=== PATIENT | female | born 1980 | race American Indian/Alaskan Native ===

== ENCOUNTER 2017-11-07 00:03 | Emergency (ER) | payer OTHER ==
[2017-11-07 01:38] LABS: CHLORIDE,CL 103 mmol/L (101-111); SODIUM,NA 135 mmol/L (135-145)
[2017-11-07] MEDS: Azithromycin 250 MG Tab PO ONE (02:08)
[2017-11-07] MEDS: cefTRIAXone 250 MG, Lidocaine 1% 0.9 ML IM ONE ×2 (02:10)
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
== END 2017-11-07 03:00 | disposition home or self-care (01) ==
LOC: EDBD → DL.ED 00:03 → EDUNIT# 00:03 → DL.ED 03:00
DX: T76.21XA Adult sexual abuse, suspected, initial encounter (principal); F19.10 Other psychoactive substance abuse, uncomplicated; F17.210 Nicotine dependence, cigarettes, uncomplicated
CPT/HCPCS: 36415; 80053; 80305; 81001; 84703; 96372; 99284; 99285; A9270; G0480; J0696

== ENCOUNTER 2017-11-09 17:23 | Emergency (ER) | payer MEDICAID, OTHER ==
[2017-11-09 18:00] LABS: CHLORIDE,CL 104 mmol/L (101-111); SODIUM,NA 136 mmol/L (135-145)
[2017-11-09 18:01] LABS: ACETAMINOPHEN < 10
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
== END 2017-11-09 19:02 ==
LOC: DL.ED 17:23
DX: F15.129 Other stimulant abuse with intoxication, unspecified (principal); F19.10 Other psychoactive substance abuse, uncomplicated; F10.129 Alcohol abuse with intoxication, unspecified; R41.82 Altered mental status, unspecified; Y90.0 Blood alcohol level of less than 20 mg/100 ml
CPT/HCPCS: 36415; 80053; 80305; 81001; 81025; 83735; 84443; 85025; 99285; G0480

== ENCOUNTER 2019-09-30 13:49 | Emergency (ER) | payer MEDICAID, OTHER ==
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
== END 2019-09-30 14:53 | disposition home or self-care (01) ==
LOC: DL.ED 13:49
DX: S66.911A Strain of unspecified muscle, fascia and tendon at wrist and hand level, right hand, initial encounter (principal); F17.210 Nicotine dependence, cigarettes, uncomplicated; W22.8XXA Striking against or struck by other objects, initial encounter; Y93.71 Activity, boxing
CPT/HCPCS: 29125; 73110-RT; 73130-RT; 99282-25

== ENCOUNTER 2021-01-09 06:40 | Emergency (ER) | payer MEDICAID ==
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
[2021-01-09] MEDS ORDERED: Acetaminophen 325 MG Tab PO ONE (07:18)
[2021-01-09] MEDS ORDERED: Ibuprofen 800 MG Tab PO ONE (07:19)
--- NOTE | 2021-01-09 07:46 | CR ---
PROCEDURE INFORMATION: Exam: XR Left Hand Exam date and time: 01/09/2021 7:22 AM Age: 40 years old Clinical indication: Pain; Hand; Left; Additional info: Left hand injury w/pain swelling TECHNIQUE: Imaging protocol: XR Left hand. Views: 3 or more views. COMPARISON: No relevant prior studies available. FINDINGS: Bones/joints: Comminuted fracture involving the 5th metacarpal neck with palmar angulation of the 5th metacarpal head. No additional fractures. No dislocation Soft tissues: There is soft tissue swelling appreciated. IMPRESSION: Comminuted fracture involving the 5th metacarpal neck with palmar angulation of the 5th metacarpal head.
--- NOTE | 2021-01-09 08:21 | CR ---
PROCEDURE INFORMATION: Exam: XR Left Forearm Exam date and time: 01/09/2021 8:07 AM Age: 40 years old Clinical indication: Pain; Lower or forearm; Left; Additional info: Fall, forearm pain TECHNIQUE: Imaging protocol: XR Left forearm. Views: 2 views. COMPARISON: No relevant prior studies available. FINDINGS: Bones/joints: Boxer's fracture at the 5th metacarpal bone. No additional fractures. No dislocation. Soft tissues: There is soft tissue swelling appreciated. IMPRESSION: Boxer's fracture at the 5th metacarpal bone.
== END 2021-01-09 08:42 | disposition home or self-care (01) ==
LOC: DL.ED 06:40
DX: S62.337A Displaced fracture of neck of fifth metacarpal bone, left hand, initial encounter for closed fracture (principal); W01.0XXA Fall on same level from slipping, tripping and stumbling without subsequent striking against object, initial encounter
CPT/HCPCS: 29125; 73090; 73130; 99283; 99284; A9270

== ENCOUNTER 2021-03-23 05:26 | Emergency (ER) | payer OTHER, MEDICAID ==
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
[2021-03-23] MEDS ORDERED: Iopamidol 612 MG/ML 100 ML Bottle IVPUSH ONE (06:00)
[2021-03-23] MEDS ORDERED: HYDROmorphone 1 MG/ML Syringe IVPUSH ONE ×2 (06:12→07:52)
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
[2021-03-23 06:45] LABS: CHLORIDE,CL 106 mmol/L (98-107); SODIUM,NA 143 mmol/L (136-145)
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
== END 2021-03-23 09:40 ==
LOC: DL.ED 05:26
DX: S82.251A Displaced comminuted fracture of shaft of right tibia, initial encounter for closed fracture (principal); V09.9XXA Pedestrian injured in unspecified transport accident, initial encounter; Y92.410 Unspecified street and highway as the place of occurrence of the external cause
CPT/HCPCS: 36415; 70450; 71260; 72125; 72128; 72131; 73560; 73590; 74177; 80053; 80307; 85025; 85610; 96374; 96376; 99285; J1170; Q9967; 99284

== ENCOUNTER 2021-11-01 10:44 | Emergency (ER) | payer MEDICAID ==
[2021-11-01 12:17] LABS: ANION GAP 13.1 mEq/L (7-13); CHLORIDE,CL 103 mmol/L (98-107); SODIUM,NA 135 mmol/L (136-145)
== END 2021-11-01 14:01 | disposition left against medical advice (07) ==
LOC: DL.ED 10:44
DX: L03.114 Cellulitis of left upper limb (principal); Z72.0 Tobacco use
CPT/HCPCS: 36415; 80053; 83735; 85025; 87070; 87077; 87186; 99283

== ENCOUNTER 2022-01-17 13:06 | Emergency (ER) | payer MEDICAID ==
[2022-01-17] MEDS ORDERED: Activated Charcoal/Water Susp 50 GM/240 ML Tube ONE (13:15)
[2022-01-17] MEDS ORDERED: Sodium Chloride 0.9% 1,000 ML IV ONE ×2 (13:22→15:50)
[2022-01-17] MEDS ORDERED: Activated Charcoal/Water Susp 50 GM/240 ML Tube PO ONE (13:22)
[2022-01-17] MEDS: Sodium Chloride 0.9% 10 ML Syringe FLUSH PRN ×2 (13:43→16:03)
[2022-01-17 14:13] LABS: PTT,PARTIAL THROMBOPLSTIN TIME 23.9 SEC (22.0-34.0)
[2022-01-17 14:17] LABS: CHLORIDE,CL 106 mmol/L (98-107); SODIUM,NA 138 mmol/L (136-145)
[2022-01-17 14:28] LABS: ACETAMINOPHEN 0 ug/mL (10-30 (Therapeutic))
[2022-01-17 15:13] LABS: AMPHETAMINES,URINE NEGATIVE (NEGATIVE); BARBITURATES,URINE NEGATIVE (NEGATIVE); BENZODIAZEPINE,URINE NEGATIVE (NEGATIVE); MDMA (ECSTASY), URINE NEGATIVE (NEGATIVE); METHADONE,URINE NEGATIVE (NEGATIVE); METHAMPHETAMINES,URINE NEGATIVE (NEGATIVE); OPIATES,URINE NEGATIVE (NEGATIVE); OXYCODONE,URINE NEGATIVE (NEGATIVE); PHENCYCLIDINE,URINE NEGATIVE (NEGATIVE); TCA,URINE NEGATIVE (NEGATIVE)
== END 2022-01-17 17:21 ==
LOC: DL.ED 13:06
DX: T44.6X2A Poisoning by alpha-adrenoreceptor antagonists, intentional self-harm, initial encounter (principal); Z20.822 Contact with and (suspected) exposure to COVID-19
CPT/HCPCS: 36415; 80053; 80143; 80179; 80305-QW; 80307; 81001; 81025; 83735; 84443; 85025; 85610; 85730; 93005; 93010; 96374; 99285; 99285-25; J3490; J7030; U0002

== ENCOUNTER 2022-09-02 18:22 | Emergency (ER) | payer MEDICAID ==
[2022-09-02] MEDS ORDERED: Cephalexin 500 MG Cap PO ONE ×2 (18:23→21:38)
[2022-09-02] MEDS ORDERED: Sodium Chloride 0.9% 10 ML Syringe FLUSH PRN (19:00)
[2022-09-02] MEDS ORDERED: Iopamidol 612 MG/ML 100 ML Bottle IVPUSH ONE (19:00)
[2022-09-02] MEDS ORDERED: Ketorolac 30 MG/ML SDV IVPUSH ONE (19:05)
[2022-09-02 19:29] LABS: AMPHETAMINES,URINE NEGATIVE (NEGATIVE); BARBITURATES,URINE NEGATIVE (NEGATIVE); BENZODIAZEPINE,URINE NEGATIVE (NEGATIVE); MDMA (ECSTASY), URINE NEGATIVE (NEGATIVE); METHADONE,URINE NEGATIVE (NEGATIVE); METHAMPHETAMINES,URINE NEGATIVE (NEGATIVE); OPIATES,URINE NEGATIVE (NEGATIVE); OXYCODONE,URINE NEGATIVE (NEGATIVE); PHENCYCLIDINE,URINE NEGATIVE (NEGATIVE); TCA,URINE NEGATIVE (NEGATIVE)
[2022-09-02 19:41] LABS: ANION GAP 9.9 mEq/L (7-13)
[2022-09-02] MEDS ORDERED: Cephalexin 500 MG Cap ONE (21:47)
== END 2022-09-02 21:50 | disposition home or self-care (01) ==
LOC: DL.ED 18:22
DX: K81.9 Cholecystitis, unspecified (principal); Z79.899 Other long term (current) drug therapy
CPT/HCPCS: 36415; 74177; 80053; 80305; 81001; 81025; 83690; 85025; 87086; 87088; 87186; 96374; 99284; A9270; J1885; J3490; Q9967

== ENCOUNTER 2022-09-05 18:51 | Emergency (ER) | payer MEDICAID | END 2022-09-05 19:42 | disposition left against medical advice (07) | LOC: DL.ED 18:51 | DX: Z53.21 Procedure and treatment not carried out due to patient leaving prior to being seen by health care provider (principal) ==

== ENCOUNTER 2022-10-01 22:23 | Emergency (ER) | payer MEDICAID | END 2022-10-02 00:45 | disposition left against medical advice (07) | LOC: DL.ED 22:23 | DX: Z53.21 Procedure and treatment not carried out due to patient leaving prior to being seen by health care provider (principal) ==

== ENCOUNTER 2022-10-10 22:17 | Emergency (ER) | payer MEDICAID ==
[2022-10-11] MEDS ORDERED: Promethazine 25 MG/ML SDV IM ONE (00:06)
[2022-10-11] MEDS ORDERED: Sodium Chloride 0.9% 1,000 ML IV ONE (00:15)
[2022-10-11 00:56] LABS: ANION GAP 12.7 mEq/L (7-13); CHLORIDE,CL 107 mmol/L (98-107); SODIUM,NA 137 mmol/L (136-145)
[2022-10-11 01:01] LABS: ESTIMATED GFR 106 mL/min (>=60)
== END 2022-10-11 01:37 | disposition home or self-care (01) ==
LOC: DL.ED 22:17
DX: K82.9 Disease of gallbladder, unspecified (principal); R11.2 Nausea with vomiting, unspecified
CPT/HCPCS: 36415; 80053; 85025; 96360; 96372; 99283; 99284-25; J2550; J7030

== ENCOUNTER 2022-10-12 04:07 | Emergency (ER) | payer MEDICAID ==
[2022-10-12] MEDS ORDERED: Lactated Ringers 1,000 ML IV ONE (04:24)
[2022-10-12] MEDS ORDERED: Ondansetron 4 MG/2 ML SDV IVPUSH ONE (04:24)
[2022-10-12 05:24] LABS: ANION GAP 11.6 mEq/L (7-13)
[2022-10-12] MEDS ORDERED: Amoxicillin/Clavulanate K 875-125 MG Tab PO ONE (06:45)
== END 2022-10-12 07:06 | disposition home or self-care (01) ==
LOC: DL.ED 04:07
DX: O21.9 Vomiting of pregnancy, unspecified (principal); O23.11 Infections of bladder in pregnancy, first trimester; Z3A.01 Less than 8 weeks gestation of pregnancy; Z20.822 Contact with and (suspected) exposure to COVID-19
CPT/HCPCS: 36415; 80053; 81001; 82150; 83605; 83690; 84443; 84702; 85025; 87086; 87088; 87186; 96361; 96374; 99283; 99284-25; J2405; J7120; U0002

== ENCOUNTER 2022-10-13 08:20 | Emergency (ER) | payer MEDICAID ==
[2022-10-13] MEDS ORDERED: Sodium Chloride 0.9% 1,000 ML IV ONE (08:39)
[2022-10-13] MEDS ORDERED: Ondansetron 4 MG/2 ML SDV IV ONE (08:39)
[2022-10-13] MEDS ORDERED: HYDROmorphone 0.5 MG/0.5 ML Syringe IVPUSH ONE (08:40)
[2022-10-13] MEDS ORDERED: cefTRIAXone 1 GM Vial IVPUSH ONE (08:40)
[2022-10-13] MEDS ORDERED: Sodium Chloride 0.9% 10 ML Syringe FLUSH PRN (08:40)
== END 2022-10-13 09:32 | disposition home or self-care (01) ==
LOC: DL.ED 08:20
DX: O99.611 Diseases of the digestive system complicating pregnancy, first trimester (principal); K80.70 Calculus of gallbladder and bile duct without cholecystitis without obstruction; O21.9 Vomiting of pregnancy, unspecified; O09.521 Supervision of elderly multigravida, first trimester; Z3A.01 Less than 8 weeks gestation of pregnancy
CPT/HCPCS: 96361; 96374; 96375; 99283; J0696; J1170; J2405; J3490; J7030

== ENCOUNTER 2022-12-02 06:14 | Emergency (ER) | payer MEDICAID ==
[2022-12-02] MEDS ORDERED: Sodium Chloride 0.9% 1,000 ML IV ONE (06:41)
[2022-12-02 07:08] LABS: ANION GAP 14.8 mEq/L (7-13)
[2022-12-02] MEDS ORDERED: Acetaminophen 500 MG Tab PO ONE (08:01)
== END 2022-12-02 08:59 | disposition home or self-care (01) ==
LOC: DL.ED 06:14
DX: O03.4 Incomplete spontaneous abortion without complication (principal)
CPT/HCPCS: 36415; 76816; 80053; 84702; 85025; 86850; 86900; 86901; 93005; 93010; 96360; 99284; 99284-25; A9270-GY; J7030

== ENCOUNTER 2022-12-02 16:01 | Emergency (ER) | payer BC, MEDICAID ==
[2022-12-02] MEDS ORDERED: Acetaminophen/Codeine 300-30 MG Tab PO ONE ×2 (16:02→16:30)
[2022-12-02] MEDS ORDERED: Acetaminophen/Codeine 300-30 MG Tab ONE (17:17)
== END 2022-12-02 17:23 | disposition home or self-care (01) ==
LOC: DL.ED 16:01
DX: O03.4 Incomplete spontaneous abortion without complication (principal)
CPT/HCPCS: 99283; A9270-GY

== ENCOUNTER 2023-05-21 00:45 | Emergency (ER) | payer BC, MEDICAID ==
[2023-05-21] MEDS ORDERED: diphenhydrAMINE 25 MG Tab PO ONE (01:39)
[2023-05-21] MEDS ORDERED: Ibuprofen 600 MG Tab PO ONE (01:39)
== END 2023-05-21 02:33 | disposition home or self-care (01) ==
LOC: DL.ED 00:45
DX: S06.0X0A Concussion without loss of consciousness, initial encounter (principal); F17.210 Nicotine dependence, cigarettes, uncomplicated; Z86.16 Personal history of COVID-19; Y04.0XXA Assault by unarmed brawl or fight, initial encounter
CPT/HCPCS: 93005; 93010; 99283; 99284; A9270-GY

== ENCOUNTER 2023-06-29 21:55 | Emergency (ER) | payer BC, MEDICAID ==
[2023-06-29] MEDS ORDERED: Ondansetron 4 MG/2 ML SDV IVPUSH ONE (22:04)
[2023-06-29] MEDS ORDERED: Ketorolac 30 MG/ML SDV IVPUSH ONE (22:07)
[2023-06-29 22:33] LABS: BASOPHILS PERCENT AUTO 0.2 % (0.0-1.0); EOSINOPHILS PERCENT AUTO 0.6 % (1.0-3.0); HEMATOCRIT 35.2 % (37.0-47.0); HEMOGLOBIN 11.6 g/dL (12.0-16.0); LYMPHOCYTES PERCENT AUTO 12.7 % (20.5-50.1); MEAN CORPUSCULAR HEMOGLOBIN 27.1 pg (27.0-34.0); MEAN CORPUSCULAR VOLUME 82.2 fL (80-100); MONOCYTES PERCENT AUTO 4.6 % (2-8); NEUTROPHILS PERCENT AUTO 81.9 % (42.2-75.2); PLATELET COUNT,PLT 292 10^3/uL (150-450); RED BLOOD CELL COUNT 4.28 10^6/uL (4.2-5.4); WHITE BLOOD CELL COUNT,WBC 11.9 10^3/uL (5.0-10.0)
[2023-06-29 22:46] LABS: ALANINE AMINOTRANSFERASE,ALT 41 U/L (14-59); ALBUMIN 3.3 g/dL (3.4-5.0); ALKALINE PHOSPHATASE 64 U/L (46-116); AMYLASE 46 U/L (25-115); ASPARTATE AMNIOTRANSFERASE,AST 29 U/L (15-37); BILIRUBIN TOTAL 0.2 mg/dL (0.2-1.0); BLOOD UREA NITROGEN,BUN 15 mg/dL (7-18); BUN/CREATININE RATIO 17.4 (No establ ref range); C-REACTIVE PROTEIN 0.09 ng/dL (<=0.30); CALCIUM 8.9 mg/dL (8.5-10.1); CARBON DIOXIDE,CO2 21 mmol/L (21-32); CHLORIDE,CL 106 mmol/L (98-107); CREATININE 0.86 mg/dL (0.55-1.02); GLUCOSE RANDOM 142 mg/dL (70-99); LIPASE 25 U/L (16-77); PROTEIN TOTAL,TP 7.1 g/dL (6.4-8.2); SODIUM,NA 139 mmol/L (136-145)
[2023-06-29 22:50] LABS: A/G RATIO 0.87; ESTIMATED GFR 86 mL/min (>=60); ETHANOL BLOOD MEDICAL < 3 mg/dL (0)
[2023-06-29] MEDS ORDERED: Sodium Chloride 0.9% 1,000 ML IV ONE (22:52)
[2023-06-29] MEDS ORDERED: Take Home: Ondansetron 4 MG Tab.DIS, 5 Tab Pack PO ONE (23:14)
== END 2023-06-29 23:30 | disposition home or self-care (01) ==
LOC: DL.ED 21:55
DX: K52.9 Noninfective gastroenteritis and colitis, unspecified (principal); Z86.16 Personal history of COVID-19
CPT/HCPCS: 36415; 80053; 80307; 82150; 83605; 83690; 83735; 84703; 85025; 86140; 93005; 93010; 96374; 96375; 99284; 99284-25; J1885; J2405; J7030; Q0162

== ENCOUNTER 2023-10-29 06:23 | Emergency (ER) | payer MEDICAID ==
[2023-10-29] MEDS ORDERED: Nitroglycerin 0.4 MG Tab.SL SL PRN (06:36)
[2023-10-29] MEDS: Aspirin 81 MG Tab.Chew PO ONE (06:46)
[2023-10-29] MEDS: Sodium Chloride 0.9% 10 ML Syringe FLUSH PRN (06:47)
[2023-10-29 06:55] LABS: BASOPHILS PERCENT AUTO 0.4 % (0.0-1.0); EOSINOPHILS PERCENT AUTO 4.3 % (1.0-3.0); HEMATOCRIT 37.9 % (37.0-47.0); HEMOGLOBIN 12.6 g/dL (12.0-16.0); LYMPHOCYTES PERCENT AUTO 33.8 % (20.5-50.1); MEAN CORPUSCULAR HEMOGLOBIN 27.2 pg (27.0-34.0); MEAN CORPUSCULAR HGB CONC 33.2 g/dL (33.0-35.0); MEAN CORPUSCULAR VOLUME 81.9 fL (80-100); MONOCYTES PERCENT AUTO 10.6 % (2-8); NEUTROPHILS PERCENT AUTO 50.9 % (42.2-75.2); PLATELET COUNT,PLT 329 10^3/uL (150-450); RED BLOOD CELL COUNT 4.63 10^6/uL (4.2-5.4); WHITE BLOOD CELL COUNT,WBC 5.6 10^3/uL (5.0-10.0)
[2023-10-29 07:07] LABS: A/G RATIO 0.8; ALANINE AMINOTRANSFERASE,ALT 64 U/L (14-59); ALBUMIN 3.7 g/dL (3.4-5.0); ALKALINE PHOSPHATASE 77 U/L (46-116); ANION GAP 11.3 mEq/L (7-13); ASPARTATE AMNIOTRANSFERASE,AST 43 U/L (15-37); BILIRUBIN TOTAL 0.3 mg/dL (0.2-1.0); BLOOD UREA NITROGEN,BUN 17 mg/dL (7-18); BUN/CREATININE RATIO 23.3 (No establ ref range); CALCIUM 8.7 mg/dL (8.5-10.1); CARBON DIOXIDE,CO2 23 mmol/L (21-32); CHLORIDE,CL 103 mmol/L (98-107); CREATININE 0.73 mg/dL (0.55-1.02); EST CRCL DRUG DOSING (CG) 90.34 mL/min; GLUCOSE RANDOM 84 mg/dL (70-99); POTASSIUM,K 4.3 mmol/L (3.5-5.1); PROTEIN TOTAL,TP 8.1 g/dL (6.4-8.2); SODIUM,NA 133 mmol/L (136-145)
[2023-10-29 07:08] LABS: ESTIMATED GFR 105 mL/min (>=60)
[2023-10-29 07:09] LABS: APPEARANCE,URINE CLEAR (CLEAR); BILIRUBIN,URINE NEGATIVE (NEGATIVE); COLOR,URINE YELLOW (YELLOW); GLUCOSE,URINE NEGATIVE (NEGATIVE); KETONES,URINE NEGATIVE (NEGATIVE); LEUKOCYTE ESTERASE,URINE NEGATIVE (NEGATIVE); NITRITE,URINE NEGATIVE (NEGATIVE); OCCULT BLOOD,URINE NEGATIVE (NEGATIVE); PROTEIN,URINE NEGATIVE (NEGATIVE); UROBILINOGEN,URINE 0.2 mg/dL (0.2-1.0)
[2023-10-29 07:17] LABS: B-TYPE NATRIURETIC PEPTIDE,BNP < 5 pg/ml (0-100)
[2023-10-29 07:19] LABS: INR 0.9 (0.9-1.2); PROTHROMBIN TIME 9.4 SEC (9.0-12.0); PTT,PARTIAL THROMBOPLSTIN TIME 24.7 SEC (22.0-34.0)
[2023-10-29] MEDS: Ketorolac 30 MG/ML SDV IVPUSH ONE (07:43)
[2023-10-29] MEDS ORDERED: MVI, Adult with Vitamin K 10 ML, Folic Acid 1 MG, Thiamine 100 MG in Lactated Ringers 1... IV ONE (07:54)
== END 2023-10-29 08:40 | disposition home or self-care (01) ==
LOC: DL.ED 06:23
DX: R07.2 Precordial pain (principal); F17.210 Nicotine dependence, cigarettes, uncomplicated; Z86.16 Personal history of COVID-19
CPT/HCPCS: 36415; 71045; 80053; 81003; 81025; 83735; 83880; 84484; 85025; 85379; 85610; 85730; 93005; 93010; 96374; 99284; 99285; A9270; J1885; J3490

== ENCOUNTER 2024-02-08 22:05 | Emergency (ER) | payer BC, MEDICAID ==
[2024-02-08] MEDS: GI Cocktail Oral Solution 30 ML PO ONE (22:38)
[2024-02-08 22:39] LABS: BASOPHILS PERCENT AUTO 0.5 % (0.0-1.0); EOSINOPHILS PERCENT AUTO 3.4 % (1.0-3.0); HEMATOCRIT 34.8 % (37.0-47.0); HEMOGLOBIN 11.4 g/dL (12.0-16.0); LYMPHOCYTES PERCENT AUTO 43.4 % (20.5-50.1); MEAN CORPUSCULAR HGB CONC 32.8 g/dL (33.0-35.0); MEAN CORPUSCULAR VOLUME 82.5 fL (80-100); MONOCYTES PERCENT AUTO 9.3 % (2-8); NEUTROPHILS PERCENT AUTO 43.4 % (42.2-75.2); PLATELET COUNT,PLT 294 10^3/uL (150-450); RED BLOOD CELL COUNT 4.22 10^6/uL (4.2-5.4); WHITE BLOOD CELL COUNT,WBC 4.4 10^3/uL (5.0-10.0)
[2024-02-08 22:58] LABS: ALBUMIN 3.3 g/dL (3.4-5.0); ANION GAP 12.6 mEq/L (7-13); BILIRUBIN TOTAL 0.2 mg/dL (0.2-1.0); BUN/CREATININE RATIO 19.2 (No establ ref range); CALCIUM 8.8 mg/dL (8.5-10.1); CREATININE 1.04 mg/dL (0.55-1.02); EST CRCL DRUG DOSING (CG) 63.41 mL/min; POTASSIUM,K 3.6 mmol/L (3.5-5.1)
[2024-02-08 23:01] LABS: A/G RATIO 0.89
[2024-02-08 23:06] LABS: APPEARANCE,URINE CLOUDY (CLEAR); BILIRUBIN,URINE NEGATIVE (NEGATIVE); COLOR,URINE YELLOW (YELLOW); GLUCOSE,URINE NEGATIVE (NEGATIVE); KETONES,URINE NEGATIVE (NEGATIVE); LEUKOCYTE ESTERASE,URINE TRACE (NEGATIVE); NITRITE,URINE POSITIVE (NEGATIVE); OCCULT BLOOD,URINE LARGE (NEGATIVE); PROTEIN,URINE NEGATIVE (NEGATIVE)
[2024-02-08 23:15] LABS: AMPHETAMINES,URINE NEGATIVE (NEGATIVE); BARBITURATES,URINE NEGATIVE (NEGATIVE); BENZODIAZEPINE,URINE NEGATIVE (NEGATIVE); MDMA (ECSTASY), URINE NEGATIVE (NEGATIVE); METHADONE,URINE NEGATIVE (NEGATIVE); METHAMPHETAMINES,URINE POSITIVE (NEGATIVE); OPIATES,URINE NEGATIVE (NEGATIVE); OXYCODONE,URINE NEGATIVE (NEGATIVE); PHENCYCLIDINE,URINE NEGATIVE (NEGATIVE); TCA,URINE NEGATIVE (NEGATIVE)
[2024-02-08] MEDS: Ondansetron 4 MG Tab.DIS PO ONE (23:15)
[2024-02-08 23:22] LABS: AMORPHOUS SEDIMENT,URINE FEW /HPF (NOT SEEN); BACTERIA,URINE MANY /HPF (0-FEW/HPF); EPITHELIAL CELLS,URINE FEW /HPF (NOT SEEN); MUCUS,URINE FEW /LPF (NOT SEEN); RBC,URINE SEMI-PACKED /HPF (0-5); WBC,URINE 0-5 /HPF (0-5/HPF)
[2024-02-09] MEDS: Ketorolac 30 MG/ML SDV IVPUSH ONE (00:20)
[2024-02-09] MEDS: Metoclopramide 10 MG/2 ML SDV IVPUSH ONE (00:30)
[2024-02-09] MEDS: cefTRIAXone 1 GM Vial IVPUSH ONE (00:35)
[2024-02-09] MEDS: Sodium Chloride 0.9% 1,000 ML IV ONE (00:41)
[2024-02-09 01:01] LABS: LACTIC ACID 1.2 mmol/L (0.4-2.0)
== END 2024-02-09 01:19 ==
LOC: DL.ED 22:05
DX: N13.2 Hydronephrosis with renal and ureteral calculous obstruction (principal); N30.00 Acute cystitis without hematuria; Z86.16 Personal history of COVID-19
CPT/HCPCS: 36415; 74176; 80053; 80305; 81001; 81025; 83605; 83690; 85025; 87040; 87086; 87088; 87186; 96361; 96374; 96375; 99285; A9270; J0696; J1885; J2765; J7030

== ENCOUNTER 2024-02-11 13:48 | Emergency (ER) | payer SELFPAY ==
[2024-02-11] MEDS: HYDROmorphone 1 MG/ML Syringe IVPUSH ONE (14:01)
[2024-02-11] MEDS: Ondansetron 4 MG/2 ML SDV IVPUSH ONE (14:01)
[2024-02-11] MEDS: Sodium Chloride 0.9% 10 ML Syringe FLUSH PRN (14:01)
[2024-02-11 14:19] LABS: BASOPHILS PERCENT AUTO 0.6 % (0.0-1.0); EOSINOPHILS PERCENT AUTO 3.5 % (1.0-3.0); HEMATOCRIT 30.8 % (37.0-47.0); HEMOGLOBIN 9.9 g/dL (12.0-16.0); LYMPHOCYTES PERCENT AUTO 32.2 % (20.5-50.1); MEAN CORPUSCULAR HEMOGLOBIN 27.4 pg (27.0-34.0); MEAN CORPUSCULAR HGB CONC 32.1 g/dL (33.0-35.0); MEAN CORPUSCULAR VOLUME 85.3 fL (80-100); MONOCYTES PERCENT AUTO 9.8 % (2-8); NEUTROPHILS PERCENT AUTO 53.9 % (42.2-75.2); PLATELET COUNT,PLT 239 10^3/uL (150-450); RED BLOOD CELL COUNT 3.61 10^6/uL (4.2-5.4); WHITE BLOOD CELL COUNT,WBC 4.9 10^3/uL (5.0-10.0)
[2024-02-11 14:23] LABS: APPEARANCE,URINE SLIGHTLY CLOUDY (CLEAR); BILIRUBIN,URINE NEGATIVE (NEGATIVE); COLOR,URINE YELLOW (YELLOW); GLUCOSE,URINE NEGATIVE (NEGATIVE); KETONES,URINE NEGATIVE (NEGATIVE); LEUKOCYTE ESTERASE,URINE SMALL (NEGATIVE); NITRITE,URINE NEGATIVE (NEGATIVE); OCCULT BLOOD,URINE LARGE (NEGATIVE); PH,URINE 5.5 (5.0-9.0); PROTEIN,URINE 30 (NEGATIVE); UROBILINOGEN,URINE 0.2 mg/dL (0.2-1.0)
[2024-02-11 14:27] LABS: BARBITURATES,URINE NEGATIVE (NEGATIVE); BENZODIAZEPINE,URINE NEGATIVE (NEGATIVE); MDMA (ECSTASY), URINE NEGATIVE (NEGATIVE); METHADONE,URINE NEGATIVE (NEGATIVE); METHAMPHETAMINES,URINE POSITIVE (NEGATIVE); OPIATES,URINE NEGATIVE (NEGATIVE); PHENCYCLIDINE,URINE NEGATIVE (NEGATIVE); TCA,URINE NEGATIVE (NEGATIVE)
[2024-02-11 14:28] LABS: AMPHETAMINES,URINE POSITIVE (NEGATIVE); OXYCODONE,URINE NEGATIVE (NEGATIVE)
[2024-02-11 14:36] LABS: ALANINE AMINOTRANSFERASE,ALT 39 U/L (14-59); ALBUMIN 2.9 g/dL (3.4-5.0); ALKALINE PHOSPHATASE 63 U/L (46-116); AMYLASE 55 U/L (25-115); ANION GAP 13.9 mEq/L (7-13); ASPARTATE AMNIOTRANSFERASE,AST 19 U/L (15-37); BILIRUBIN TOTAL 0.1 mg/dL (0.2-1.0); BLOOD UREA NITROGEN,BUN 7 mg/dL (7-18); BUN/CREATININE RATIO 8.9 (No establ ref range); C-REACTIVE PROTEIN 0.79 ng/dL (<=0.50); CALCIUM 8.4 mg/dL (8.5-10.1); CARBON DIOXIDE,CO2 23 mmol/L (21-32); CHLORIDE,CL 110 mmol/L (98-107); CREATININE 0.79 mg/dL (0.55-1.02); GLUCOSE RANDOM 94 mg/dL (70-99); LIPASE 34 U/L (16-77); POTASSIUM,K 3.9 mmol/L (3.5-5.1); PROTEIN TOTAL,TP 6.6 g/dL (6.4-8.2); SODIUM,NA 143 mmol/L (136-145)
[2024-02-11 14:37] LABS: A/G RATIO 0.78; ESTIMATED GFR 96 mL/min (>=60)
[2024-02-11 14:45] LABS: LACTIC ACID 2.4 mmol/L (0.4-2.0)
[2024-02-11 14:46] LABS: BACTERIA,URINE FEW /HPF (0-FEW/HPF); EPITHELIAL CELLS,URINE FEW /HPF (NOT SEEN); MUCUS,URINE FEW /LPF (NOT SEEN); RBC,URINE PACKED /HPF (0-5)
[2024-02-11] MEDS: Iopamidol 612 MG/ML 100 ML Bottle IVPUSH ONE (15:04)
[2024-02-11] MEDS: Ketorolac 30 MG/ML SDV IVPUSH ONE (16:16)
[2024-02-11] MEDS: Phenazopyridine 95 MG Tab PO ONE (16:22)
== END 2024-02-11 16:30 | disposition home or self-care (01) ==
LOC: DL.ED 13:48
DX: N13.2 Hydronephrosis with renal and ureteral calculous obstruction (principal); F17.210 Nicotine dependence, cigarettes, uncomplicated; Z96.0 Presence of urogenital implants
CPT/HCPCS: 36415; 74177; 80053; 80305; 81001; 82150; 83605; 83690; 85025; 86140; 87040; 87086; 96374; 96375; 99284; A9270; J1170; J1885; J2405; Q9967; J3490

== ENCOUNTER 2024-02-14 21:10 | Emergency (ER) | payer SELFPAY ==
[2024-02-14] MEDS: Ondansetron 4 MG/2 ML SDV IVPUSH ONE (21:34)
[2024-02-14] MEDS: Morphine 4 MG/ML Syringe IVPUSH ONE ×2 (21:36→22:47)
[2024-02-14 21:38] LABS: BASOPHILS PERCENT AUTO 0.4 % (0.0-1.0); EOSINOPHILS PERCENT AUTO 4.1 % (1.0-3.0); HEMATOCRIT 32.7 % (37.0-47.0); HEMOGLOBIN 10.6 g/dL (12.0-16.0); LYMPHOCYTES PERCENT AUTO 34.8 % (20.5-50.1); MEAN CORPUSCULAR HEMOGLOBIN 27.1 pg (27.0-34.0); MEAN CORPUSCULAR HGB CONC 32.4 g/dL (33.0-35.0); MEAN CORPUSCULAR VOLUME 83.6 fL (80-100); NEUTROPHILS PERCENT AUTO 50.7 % (42.2-75.2); PLATELET COUNT,PLT 261 10^3/uL (150-450); RED BLOOD CELL COUNT 3.91 10^6/uL (4.2-5.4); WHITE BLOOD CELL COUNT,WBC 5.1 10^3/uL (5.0-10.0)
[2024-02-14] MEDS: Ketorolac 30 MG/ML SDV IVPUSH ONE (21:43)
[2024-02-14 21:44] LABS: ALANINE AMINOTRANSFERASE,ALT 58 U/L (14-59); ALBUMIN 3.3 g/dL (3.4-5.0); ALKALINE PHOSPHATASE 73 U/L (46-116); ANION GAP 12.5 mEq/L (7-13); ASPARTATE AMNIOTRANSFERASE,AST 43 U/L (15-37); BILIRUBIN TOTAL 0.2 mg/dL (0.2-1.0); BLOOD UREA NITROGEN,BUN 17 mg/dL (7-18); BUN/CREATININE RATIO 16.5 (No establ ref range); CALCIUM 8.9 mg/dL (8.5-10.1); CARBON DIOXIDE,CO2 26 mmol/L (21-32); CHLORIDE,CL 105 mmol/L (98-107); CREATININE 1.03 mg/dL (0.55-1.02); GLUCOSE RANDOM 121 mg/dL (70-99); POTASSIUM,K 4.5 mmol/L (3.5-5.1); PROTEIN TOTAL,TP 7.1 g/dL (6.4-8.2); SODIUM,NA 139 mmol/L (136-145)
[2024-02-14] MEDS: Sodium Chloride 0.9% 1,000 ML IV ONE (21:44)
[2024-02-14 21:46] LABS: A/G RATIO 0.87; ESTIMATED GFR 70 mL/min (>=60)
[2024-02-14 22:35] LABS: APPEARANCE,URINE CLEAR (CLEAR); BILIRUBIN,URINE NEGATIVE (NEGATIVE); COLOR,URINE ORANGE (YELLOW); GLUCOSE,URINE 100 (NEGATIVE); KETONES,URINE NEGATIVE (NEGATIVE); LEUKOCYTE ESTERASE,URINE LARGE (NEGATIVE); NITRITE,URINE POSITIVE (NEGATIVE); OCCULT BLOOD,URINE SMALL (NEGATIVE); PH,URINE 6.5 (5.0-9.0); PROTEIN,URINE 100 (NEGATIVE)
[2024-02-14] MEDS: Metoclopramide 10 MG/2 ML SDV IVPUSH ONE (22:41)
[2024-02-14 22:43] LABS: AMORPHOUS SEDIMENT,URINE FEW /HPF (NOT SEEN); BACTERIA,URINE FEW /HPF (0-FEW/HPF); EPITHELIAL CELLS,URINE MODERATE /HPF (NOT SEEN); MUCUS,URINE FEW /LPF (NOT SEEN)
[2024-02-14] MEDS: diphenhydrAMINE 50 MG/ML SDV IVPUSH ONE (22:43)
[2024-02-14 22:45] LABS: AMPHETAMINES,URINE NEGATIVE (NEGATIVE); BARBITURATES,URINE NEGATIVE (NEGATIVE); BENZODIAZEPINE,URINE NEGATIVE (NEGATIVE); MDMA (ECSTASY), URINE NEGATIVE (NEGATIVE); METHADONE,URINE NEGATIVE (NEGATIVE); METHAMPHETAMINES,URINE NEGATIVE (NEGATIVE); OPIATES,URINE POSITIVE (NEGATIVE); OXYCODONE,URINE NEGATIVE (NEGATIVE); PHENCYCLIDINE,URINE NEGATIVE (NEGATIVE); TCA,URINE NEGATIVE (NEGATIVE)
[2024-02-15] MEDS: Take Home: Ondansetron 4 MG Tab.DIS, 5 Tab Pack PO ONE (00:30)
== END 2024-02-15 00:34 | disposition home or self-care (01) ==
LOC: DL.ED 21:10
DX: N13.2 Hydronephrosis with renal and ureteral calculous obstruction (principal); N39.0 Urinary tract infection, site not specified
CPT/HCPCS: 36415; 74018; 74176; 80053; 80305; 81001; 85025; 87086; 96374; 96375; 96376; 99284; J1200; J1885; J2270; J2405; J2765; J7030; Q0162

== ENCOUNTER 2025-03-02 12:30 | Emergency (ER) | payer SELFPAY ==
[2025-03-02] MEDS ORDERED: Sodium Chloride 0.9% 10 ML Syringe FLUSH PRN (12:37)
[2025-03-02 12:46] LABS: BASOPHILS PERCENT AUTO 0.2 % (0.0-1.0); EOSINOPHILS PERCENT AUTO 1.7 % (1.0-3.0); HEMATOCRIT 35.1 % (37.0-47.0); HEMOGLOBIN 11.8 g/dL (12.0-16.0); LYMPHOCYTES PERCENT AUTO 31.8 % (20.5-50.1); MEAN CORPUSCULAR HEMOGLOBIN 28.6 pg (27.0-34.0); MEAN CORPUSCULAR HGB CONC 33.6 g/dL (33.0-35.0); NEUTROPHILS PERCENT AUTO 58.3 % (42.2-75.2); PLATELET COUNT,PLT 270 10^3/uL (150-450); RED BLOOD CELL COUNT 4.13 10^6/uL (4.2-5.4); WHITE BLOOD CELL COUNT,WBC 5.4 10^3/uL (5.0-10.0)
[2025-03-02 13:07] LABS: ALANINE AMINOTRANSFERASE,ALT 19 U/L (14-59); ALBUMIN 3.8 g/dL (3.4-5.0); ALKALINE PHOSPHATASE 71 U/L (46-116); ANION GAP 11.1 mEq/L (7-13); ASPARTATE AMNIOTRANSFERASE,AST 14 U/L (15-37); BILIRUBIN TOTAL 0.3 mg/dL (0.2-1.0); BLOOD UREA NITROGEN,BUN 12 mg/dL (7-18); BUN/CREATININE RATIO 13.6 (No establ ref range); CALCIUM 9.3 mg/dL (8.5-10.1); CARBON DIOXIDE,CO2 26 mmol/L (21-32); CHLORIDE,CL 106 mmol/L (98-107); CREATININE 0.88 mg/dL (0.55-1.02); EST CRCL DRUG DOSING (CG) 77.17 mL/min; ESTIMATED GFR 84 mL/min (>=60); GLUCOSE RANDOM 90 mg/dL (70-99); LIPASE 21 U/L (16-77); MAGNESIUM 1.9 mg/dL (1.8-2.4); POTASSIUM,K 4.1 mmol/L (3.5-5.1); PROTEIN TOTAL,TP 7.7 g/dL (6.4-8.2); SODIUM,NA 139 mmol/L (136-145)
[2025-03-02 13:08] LABS: INR 0.9 (0.9-1.2); PROTHROMBIN TIME 9.6 SEC (9.0-12.0)
[2025-03-02] MEDS: Ketorolac 30 MG/ML SDV IVPUSH ONE (13:14)
== END 2025-03-02 13:35 | disposition home or self-care (01) ==
LOC: DL.ED 12:30
DX: R07.89 Other chest pain (principal); Z90.49 Acquired absence of other specified parts of digestive tract
CPT/HCPCS: 36415; 71045; 80053; 83690; 83735; 84484; 85025; 85610; 93005; 93010; 96374; 99284; 99285; J1885

== ENCOUNTER 2025-06-14 21:52 | Emergency (ER) | payer MEDICAID ==
[2025-06-14] MEDS ORDERED: Sodium Chloride 0.9% 10 ML Syringe FLUSH PRN (22:12)
[2025-06-14 22:28] LABS: BASOPHILS PERCENT AUTO 0.2 % (0.0-1.0); EOSINOPHILS PERCENT AUTO 3.7 % (1.0-3.0); LYMPHOCYTES PERCENT AUTO 37.4 % (20.5-50.1); MONOCYTES PERCENT AUTO 11.9 % (2-8); NEUTROPHILS PERCENT AUTO 46.8 % (42.2-75.2); PLATELET COUNT,PLT 269 10^3/uL (150-450); RED BLOOD CELL COUNT 3.83 10^6/uL (4.2-5.4); WHITE BLOOD CELL COUNT,WBC 4.6 10^3/uL (5.0-10.0)
[2025-06-14 22:50] LABS: A/G RATIO 0.9; ALANINE AMINOTRANSFERASE,ALT 16.0 U/L (14-59); ASPARTATE AMNIOTRANSFERASE,AST 18.0 U/L (15-37); BILIRUBIN TOTAL 0.2 mg/dL (0.2-1.0); BLOOD UREA NITROGEN,BUN 15.0 mg/dL (7-18); CARBON DIOXIDE,CO2 25.0 mmol/L (21-32); CHLORIDE,CL 109.0 mmol/L (98-107); CREATININE 0.71 mg/dL (0.55-1.02); EST CRCL DRUG DOSING (CG) 90.99 mL/min; GLUCOSE RANDOM 102.0 mg/dL (70-99); POTASSIUM,K 4.2 mmol/L (3.5-5.1); PROTEIN TOTAL,TP 7.4 g/dL (6.4-8.2); SODIUM,NA 143.0 mmol/L (136-145)
[2025-06-14 22:51] LABS: ESTIMATED GFR 107.0 mL/min (>=60)
[2025-06-15 01:15] LABS: APPEARANCE,URINE CLEAR (CLEAR); GLUCOSE,URINE NEGATIVE (NEGATIVE); OCCULT BLOOD,URINE LARGE (NEGATIVE)
[2025-06-15 01:28] LABS: SQUAMOUS EPITHELIAL CELLS,UR MODERATE /HPF (NOT SEEN)
[2025-06-15 01:29] LABS: AMPHETAMINES,URINE NEGATIVE (NEGATIVE); BARBITURATES,URINE NEGATIVE (NEGATIVE); MDMA (ECSTASY), URINE NEGATIVE (NEGATIVE); METHAMPHETAMINES,URINE NEGATIVE (NEGATIVE); OPIATES,URINE NEGATIVE (NEGATIVE); OXYCODONE,URINE NEGATIVE (NEGATIVE); PHENCYCLIDINE,URINE NEGATIVE (NEGATIVE); TCA,URINE NEGATIVE (NEGATIVE)
== END 2025-06-15 01:30 | disposition home or self-care (01) ==
LOC: DL.ED 21:52
DX: R07.9 Chest pain, unspecified (principal); Z90.49 Acquired absence of other specified parts of digestive tract
CPT/HCPCS: 36415; 71046; 80053; 80305-QW; 81001; 83735; 84484; 85025; 85379; 93005; 99285